=== PATIENT | female | born 1950 | race Caucasian/White ===

== ENCOUNTER 2017-11-12 11:01 | Emergency (ER) | payer MEDICARE ==
[2017-11-12 12:26] VITALS: BP 146/82
--- NOTE | 2017-11-12 12:48 | UC ---
Back Pain HPI - HPI Summary HPI Summary: 67 yo female with pain near right shoulder blade x 1 week after doing yard work then developed pain down right arm numb right index finger hx cervical disc issue 20 yrs ago - History of Current Complaint Chief Complaint: UCBackPain Stated Complaint: BACK MUSCLE COMPLAINT Time Seen by Provider: 11/12/17 12:37 Hx Obtained From: Patient Onset/Duration: Sudden Onset, Lasting Days Timing: Constant Severity Initially: Moderate Severity Currently: Moderate Pain Intensity: 6 Pain Scale Used: 0-10 Numeric Back Pain: Is Discrete @ - right rhomboid, Radiates To - right index finger Character: Aching, Throbbing Aggravating Factor(s): Movement Associated Signs And Symptoms: Positive: Numbness - right index finger Related History: Similar Episode Dx As - "pinched nerve" - Allergies/Home Medications Allergies/Adverse Reactions: Allergies Allergy/AdvReac Type Severity Reaction Status Date / Time No Known Allergies Allergy Verified 11/12/17 12:22 Home Medications: Home Medications Atorvastatin* [Lipitor 10 MG*] 20 mg PO DAILY 11/12/17 [History Confirmed ] Ibuprofen [Advil] 400 mg PO Q8H 11/12/17 [History Confirmed 11/12/17] Omeprazole CAP* [Prilosec CAP* 20 MG] 40 mg PO DAILY 11/12/17 [History Confirmed 11/12/17] PMH/Surg Hx/FS Hx/Imm Hx Previously Healthy: Yes Endocrine History: Dyslipidemia GI/ History: Gastroesophageal Reflux - Surgical History Surgical History: Yes Surgery Procedure, Year, and Place: BILATERAL TUBAL LIGATION. RIGHT BREAST LUMPECTOMY. COLONOSCOPY. ENDOSCOPY - Family History Known Family History: Positive: Hypertension - Social History Alcohol Use: Occasionally Substance Use Type: None Smoking Status (MU): Former Smoker When Did the Patient Quit Smoking/Using Tobacco: 25 YRS AGO Review of Systems Constitutional: Negative Skin: Negative Eyes: Negative ENT: Negative Respiratory: Negative Cardiovascular: Negative Gastrointestinal: Negative Genitourinary: Negative Motor: Negative Neurovascular: Negative Musculoskeletal: Myalgia Neurological: Negative Psychological: Negative Is Patient Immunocompromised?: No All Other Systems Reviewed And Are Negative: Yes Physical Exam Triage Information Reviewed: Yes Appearance: Well-Appearing, No Pain Distress, Well-Nourished Vital Signs: Initial Vital Signs Temp 97.7 F 11/12/17 12:17 Pulse 66 11/12/17 12:17 Resp 17 11/12/17 12:17 BP 146/82 11/12/17 12:17 Pulse Ox 98 11/12/17 12:17 Eyes: Positive: Conjunctiva Clear ENT: Positive: Hearing grossly normal. Negative: Nasal congestion, Nasal drainage, Trismus, Muffled voice, Hoarse voice Dental Exam: Normal Neck: Positive: Other: - see image Respiratory Exam: Normal Respiratory: Positive: Lungs clear, Normal breath sounds, No respiratory distress Cardiovascular Exam: Normal Abdominal Exam: Normal Musculoskeletal: Positive: ROM Intact, No Edema Neurological: Positive: Alert, Muscle Tone Normal, Other: - streght 5/5, sensory intact, DTRs symmetrical Psychological Exam: Normal Psychological: Positive: Normal Response To Family Skin Exam: Normal Diagnostics - Radiology No standard instances Xray Interpretation: Positive (See Comments) - DEGENERATIVE DISC DISEASE AND OSTEOARTHRITIS Radiology Interpretation Completed By: Radiologist Back Pain Course/Dx - Differential Dx/Diagnosis Provider Diagnoses: right cervical radiculopathy. right rhomboid myofascial strain Discharge - Sign-Out/Discharge Documenting (check all that apply): Discharge/Admit/Transfer - Discharge Plan Condition: Stable Disposition: HOME Prescriptions: Cyclobenzaprine TAB* [Flexeril TAB*] 5 - 10 mg PO TID PRN #12 tab PRN Reason: Spasms methylPREDNISolone [Medrol Dosepak 4 MG*] 0 mg PO .SEE DARYA INSTRUCTION #1 tab Patient Education Materials: Soft Cervical Collar (ED), Cervical Radiculopathy (ED) Referrals: Simon eL MD [Primary Care Provider] - As Soon As Possible Additional Instructions: PT consult soft cervical collar - Billing Disposition and Condition Condition: STABLE Disposition: HOME Images Head: 1 - tender here
--- NOTE | 2017-11-12 13:25 | RAD ---
HISTORY: Cervical radiculopathy COMPARISONS: None VIEWS: 5, Frontal, lateral, open-mouth odontoid, and bilateral oblique views of the cervical spine. FINDINGS: The cervical spine is visualized from the skull base through T1. ALIGNMENT: There is straightening of the normal cervical lordosis. VERTEBRAL BODIES: The odontoid process is intact. The atlantoaxial intervals are symmetric. There is multilevel anterolateral marginal osteophyte formation. JOINTS: There is uncovertebral and facet osteoarthritic. On the oblique views, this results in moderate left neural foraminal narrowing at C4-C5 and C5-C6 and moderate narrowing on the right at C6-C7. INTERVERTEBRAL DISCS: There is diffuse loss of intervertebral disc height. SOFT TISSUE: The prevertebral soft tissues are normal. OTHER: The skull base is normal. The lung apices are clear. IMPRESSION: DEGENERATIVE DISC DISEASE AND OSTEOARTHRITIS.
== END 2017-11-12 13:48 | disposition home or self-care (01) ==
LOC: UCCORT 11:01
DX: M54.12 Radiculopathy, cervical region (principal); S46.811A Strain of other muscles, fascia and tendons at shoulder and upper arm level, right arm, initial encounter; X50.0XXA Overexertion from strenuous movement or load, initial encounter; Y93.H2 Activity, gardening and landscaping; Y92.007 Garden or yard of unspecified non-institutional (private) residence as the place of occurrence of the external cause; Z87.891 Personal history of nicotine dependence; K21.9 Gastro-esophageal reflux disease without esophagitis; E78.5 Hyperlipidemia, unspecified
CPT/HCPCS: 72050; 99213; G0463